=== PATIENT | female | born 1960 | race Caucasian/White ===

== ENCOUNTER 2020-05-14 09:56 | Outpatient (CLI) | payer BC, SELFPAY ==
--- NOTE | 2020-05-14 11:00 | NEURO_ITS ---
Patient Number: [id number] Impression: # Complains of numbness of hands. # Bilateral mild evolving Carpal Tunnel Syndrome. # Normal needle/EMG exam. # Clinical correlation recommended. Nerve Conduction Studies Anti Sensory Summary Table Stim Site NR Peak (ms) P-T Amp (?V) Site1 Site2 Delta-P (ms) Dist (cm) Diego (m/s) Left Median Anti Sensory (2-3nd Digit) Wrist 4.0 62.3 Wrist 2-3nd Digit 4.0 14.0 35 Wrist 4.0 67.5 Wrist 2-3nd Digit 4.0 14.0 35 Right Median Anti Sensory (2-3nd Digit) Wrist 3.6 51.6 Wrist 2-3nd Digit 3.6 14.0 39 Wrist 4.0 34.9 Wrist 2-3nd Digit 3.6 14.0 39 Left Radial Anti Sensory (Base 1st Digit) Wrist 2.1 15.9 Wrist Base 1st Digit 2.1 0.0 Right Radial Anti Sensory (Base 1st Digit) Wrist 1.9 36.2 Wrist Base 1st Digit 1.9 0.0 Left Ulnar Anti Sensory (5th Digit) Wrist 2.8 84.8 Wrist 5th Digit 2.8 14.0 50 Right Ulnar Anti Sensory (5th Digit) Wrist 2.6 17.8 Wrist 5th Digit 2.6 14.0 54 Motor Summary Table Stim Site NR Onset (ms) O-P Amp (mV) Site1 Site2 Delta-0 (ms) Dist (cm) Diego (m/s) Left Median Motor (Abd Poll Brev) Wrist 3.8 1.1 Elbow Wrist 5.0 29.0 58 Elbow 8.8 0.8 Right Median Motor (Abd Poll Brev) Wrist 3.7 4.6 Elbow Wrist 4.8 29.0 60 Elbow 8.5 4.0 Left Ulnar Motor (Abd Dig Minimi) Wrist 2.7 8.7 A Elbow Wrist 5.0 31.0 62 A Elbow 7.7 7.2 Right Ulnar Motor (Abd Dig Minimi) Wrist 2.4 6.7 A Elbow Wrist 5.3 31.0 58 A Elbow 7.7 5.9 F Wave Studies NR F-Lat (ms) L-R F-Lat (ms) Left Median (Mrkrs) (Abd Poll Brev) 29.10 0.90 Right Median (Mrkrs) (Abd Poll Brev) 28.20 0.90 Left Ulnar (Mrkrs) (Abd Dig Min) 27.21 0.14 Right Ulnar (Mrkrs) (Abd Dig Min) 27.35 0.14 EMG Side Muscle Nerve Root Ins Act Fibs Amp Dur Recrt Comment Right 1stDorInt Ulnar C8-T1 Nml Nml Nml Nml Nml Right Ext Indicis Radial (Post Int) C7-8 Nml Nml Nml Nml Nml Right Ext Digitorum Radial (Post Int) C7-8 Nml Nml Nml Nml Nml Right BrachioRad Radial C5-6 Nml Nml Nml Nml Nml Right PronatorTeres Median C6-7 Nml Nml Nml Nml Nml Right Abd Poll Brev Median C8-T1 Nml Nml Nml Nml Nml Left 1stDorInt Ulnar C8-T1 Nml Nml Nml Nml Nml Left Ext Indicis Radial (Post Int) C7-8 Nml Nml Nml Nml Nml Left Ext Digitorum Radial (Post Int) C7-8 Nml Nml Nml Nml Nml Left BrachioRad Radial C5-6 Nml Nml Nml Nml Nml Left PronatorTeres Median C6-7 Nml Nml Nml Nml Nml Left Abd Poll Brev Median C8-T1 Nml Nml Nml Nml Nml Right ABD Dig Min Ulnar C8-T1 Nml Nml Nml Nml Nml Left ABD Dig Min Ulnar C8-T1 Nml Nml Nml Nml Nml MTDD
== END 2020-05-14 09:57 | disposition home or self-care (01) ==
PROVIDERS: PCP Internal Medicine; Visit Provider Orthopaedic Surgery
DX: G56.03 Carpal tunnel syndrome, bilateral upper limbs (principal)
CPT/HCPCS: 95886; 95911

== ENCOUNTER 2020-06-24 01:50 | Outpatient (CLI) | payer BC, SELFPAY ==
[2020-06-24 19:02] LABS: SARS-CoV-2 RNA PCR Negative
== END 2020-06-24 01:51 | disposition home or self-care (01) ==
LOC: ANHCOVIDDT 01:51
PROVIDERS: PCP Internal Medicine; Visit Provider Orthopaedic Surgery
DX: Z01.812 Encounter for preprocedural laboratory examination (principal); Z20.828 Contact with and (suspected) exposure to other viral communicable diseases
CPT/HCPCS: 87635; C9803; U0003

== ENCOUNTER 2020-06-26 00:54 | Day surgery (SDC) | payer BC, SELFPAY ==
[2020-06-16 12:00] VITALS: BMI 39.4
[2020-06-26] VITALS (12 sets, daily range): BP systolic 111–146; BP diastolic 67–88; PULSE 59–70; RESP 12–20; TEMP 36–36.8; O2SAT 92–100
--- NOTE | ~2020-06-26 | XR_ITS ---
EXAMINATION: XR surgery orthopedic DATE: 06/26/2020 13:35 INDICATION: Left foot arthrodesis TECHNIQUE: A single frontal fluoroscopic image the left ankle was obtained during procedure performed by Dr. Fu. Radiologist was not present for the imaging or procedure. The amount of fluoroscopy time used during this procedure was minutes. COMPARISON: 06/18/2020 FINDINGS: There are a pair of likely compression screws projecting over the region of the posterior facet of th e subtalar joint likely for arthrodesis. There is a lateral sided staple and medial sided wire plate and screws and locations consistent with fixation for arthrodesis of the calcaneocuboid and talonavic ular joints respectively. There is improved alignment of the hindfoot on the provided projection whic h now appears near-anatomic. Mild tibiotalar osteoarthritis. No fracture. IMPRESSION: 1. Fluoroscopy utilized during instrumented hindfoot arthrodesis detailed above. See procedure note f or further detail. Reviewed, dictated and finalized at location A. IMPRESSION: 1. Fluoroscopy utilized during instrumented hindfoot arthrodesis detailed above . See procedure note for further detail.
--- NOTE | 2020-06-26 07:00 | WPDHPUPDATE1 ---
History and Physical Update Update Date/Time: 06/26/20 07:00 History and Physical has been reviewed, including an updated exam of the patient. There are NO changes in the patient's condition. Covid test negative. Risks, benefits, and alternatives have been discussed and questions answered. Patient agrees to proceed with procedure.
[2020-06-26] MEDS: ACETAMINOPHEN 500 MG TABLET 1000 MG PO (08:36)
[2020-06-26] MEDS: KETOROLAC 15 MG/ML VIAL (*BKC) IV PUSH (08:37)
[2020-06-26] MEDS: LACTATED RINGERS 1,000 ML 30 ML IV CONT ×2 (08:45→14:09)
--- NOTE | 2020-06-26 09:37 | P.PNAN_ITS ---
Anes - Initial Pre Proc Eval Procedure: Operation Date: 06/26/20 09:30 Proposed Procedures p Left Foot Triple Arthrodesis, Flexor Digitorum Communis Tendon Transfer, Achilles Lengthening, Synovial Biopsy - Mike Fu MD Date/Time: 06/26/20 09:37 Surgeon: Mike Fu MD Pre Op Diagnosis: left ankle arthritis, left flat foot, left RA Patient Data Age: 60 Gender: F Height: 1.71 m Weight: 112.4 kg Last Vital Signs Temp 36.4 C 06/26/20 08:32 Pulse 70 06/26/20 08:32 Resp 18 06/26/20 08:32 BP 146/88 H 06/26/20 08:32 Pulse Ox 100 06/26/20 08:32 Allergies Allergy/AdvReac Type Severity Reaction Status Date / Time No Known Allergies Allergy Verified 06/26/20 08:24 Home Medications Medication Instructions Recorded Confirmed Type celecoxib 200 mg capsule 200 mg PO DAILY 08/07/19 06/26/20 History cholecalciferol (vitamin D3) 25 1,000 unit PO 3XW 08/07/19 06/26/20 History mcg (1,000 unit) capsule cranberry 500 mg capsule 500 mg PO 2XW 08/07/19 06/26/20 History folic acid 1 mg tablet 1 mg PO DAILY 08/07/19 06/26/20 History methotrexate sodium 2.5 mg tablet 2.5 mg PO WEEKLY 08/07/19 06/26/20 History multivitamin 1 tablet PO .4X WEEKLY 08/07/19 06/26/20 History sulfasalazine 500 mg tablet 1,500 gm PO BID 08/07/19 06/26/20 History golimumab 12.5 mg/mL intravenous 2 mg/kg IVPB .bimonthly ml 03/04/20 06/26/20 History solution losartan-hydrochlorothiazide 0.5 tablet PO DAILY 06/16/20 06/26/20 History Patient hx anesthesia problems: none Family hx anesthesia problems: none PMFSH Past Medical History Medical History (Updated 06/18/20 @ 12:22 by Mike Fu MD) Acquired leg length discrepancy Arthritis of foot Chronic headaches HTN (hypertension) Left ankle effusion Rheumatoid arthritis Vision loss Surgical History Surgical History H/O arthroscopic knee surgery H/O joint replacement Family History Family History Other Arthritis Cancer Diabetes mellitus Hypertension Social History Social History Alcohol intake: never Substance use: unknown 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 Questions were solicited and answers provided to the satisfaction of the patient/family/POA.
[2020-06-26] MEDS: ceFAZolin 2 GM/D5W 50 ML 2 GM/50 ML BAG IVPB (09:47)
[2020-06-26] MEDS: BUPIVACAINE HCL 0.5% PF 30 ML VIAL INFILTRATE (10:33)
--- NOTE | 2020-06-26 14:25 | PM.PROC ---
Procedure Note - Detailed Date of procedure: 06/26/20 Pre-op diagnosis: left ankle arthritis, left flat foot, left RA Post-op diagnosis: same Procedure performed: Left foot triple arthrodesis, posterior tibial tendon reconstruction with FDL tendon transfer to the navicula, ankle joint biopsy Description of procedure: Indications: Patient is a 52-year-old woman with inflammatory arthritis left foot and ankle swelling, pain and deformity with flatfoot. She also has posterior tibial tendon dysfunction. She has failed conservative treatment with custom bracing and inserts. She presents now for operative treatment. She is currently under care of a branch employment coordinator and continues to have pain and swelling. What was done: Patient identified in the preoperative holding. Informed consent given. Operative extremity marked. Patient received intravenous antibiotics. Patient brought to the operating room where underwent general anesthetic by anesthesia team. Positioned supine on operating room table. Time-out performed confirming the patient, site of the surgery and the plan. A bump placed under the left hip. Left lower extremity then prepped draped usual sterile surgical fashion using a ChloraPrep skin solution. Foot and ankle exsanguinated and a thigh tourniquet inflated to 250 mmHg. Oblique incision made from the tip of the fibula to the base of the 4th metatarsal with a 15 blade knife. Hemostasis controlled electrocautery. The soft tissue was elevated at the proximal extent and a anterolateral capsulotomy was performed with a 15 blade knife at the ankle joint. Copious amount of fluid was able to be retrieved and passed off as specimen. A 1.5 x 1.5 centimeter sq of synovium was also sharply excised and passed off as specimen. Wound was thoroughly irrigated and the capsule was closed with 0 Vicryl interrupted suture. Capsulotomy was performed over the sinus tarsi and the calcaneocuboid joint with a 15 blade knife. Joints were then prepared using osteotomes, curettes and rongeur to remove the cartilage and subchondral bone surface as well as feather the arthrodesis site. The subtalar joint was then reduced and pinned and checked with image intensification. Fixation was achieved with 7.0 mm cannulated screws placed percutaneously from the heel. Good reduction and compression were noted. Platelet rich plasma which had been removed from the patient's venous blood and prepared on the back table with central fusion was then mixed with the demineralized bone matrix and packed into the subtalar joint prior to fixation. Calcaneocuboid joint was approached in a similar fashion. The graft with demineralized bone matrix was placed into the arthrodesis site. This was reduced and provisionally pinned and checked with image intensification. Fixation achieved with a Nitinol staple. Wound thoroughly irrigated antibiotic solution fascia repaired with 0 Vicryl interrupted suture. Subcutaneous tissue repaired with 2 Vicryl suture subcutaneous tissue repaired with 3 0 Monocryl interrupted suture and skin repaired with tello. Stab incisions closed with 3 Monocryl and tello. Oblique incision made from the medial malleolus to the navicular and then with a 15 blade knife. Hemostasis controlled electrocautery. Fascia incised in line with skin incision. Incision over the posterior tibial tendon sheath then made. The posterior tibial tendon was noted to be completely ruptured and atrophied. Deep to this flexor digitorum was identified and was released distally. Drill hole placed in the medial navicular tuberosity from dorsal plantar. Tendon was then transferred through the drill hole from plantar to dorsal. Fixed with an Arthrex bioabsorbable bio tenodesis screw. Wound thoroughly irrigated antibiotic solution and the tendon sheath was repaired with 0 Vicryl interrupted suture. Talonavicular joint capsule was then incised in line with skin incision and elevated dorsally and plantarw
--- NOTE | 2020-06-26 14:54 | WPDANESPNB ---
Anes - Peripheral Nerve Block Date/Time: 06/26/20 14:54 I have discussed with the patient/family/POA the placement of a peripheral nerve block for post-operative pain management, including associated risks, benefits, complications, and side effects. Alternative methods of post-operative analgesia were detailed. Questions were solicited and answers provided to the satisfaction of the patient/family/POA. Time-Out: A pre-procedural Time-Out was completed immediately before starting the procedure and confirmed: Patient Identification, Site, Procedure, Patient Position and the Availability of Requisite Equipment. Clinical Indications: Acute post-operative pain management requested by the operative surgeon. Nerve Block Insertion Note Anes-nerve block: posterior fossa sciatic (20cc) left and adductor canal (10cc) left Patient position: supine Skin prep: chlorhexidine Needle: 22 gauge, stimulating, insulated echogenic needle. Needle length: 80 mm Technique: ultrasound (in plane) Injectate: bupivacaine 0.5% with epi 5 mcg/ml (20cc) Observations: tolerated well Complications: none Procedure start time:: 1445 Procedure end time:: 1450
--- NOTE | 2020-06-26 15:20 | ADMGEN ---
This patient, Rc Juarez, was admitted to Medical Room 247-. Patient/family oriented to hospital policies and general routines including ID bracelet, bed and alarms, visiting hours, pain management, procedures, bathroom and other care routines, personal items, smoking policy, room service/diet, and visiting hours. Information on how to activate the Rapid Response Team has been discussed. Patient/Family are encouraged to report perceived risks to care and to ask questions if they do not understand what they are told or what they should do.
[2020-06-26] MEDS: KCL 20 MEQ/D5/0.45% SOD CHL 1,000 ML 80 ML IV CONT (15:39)
[2020-06-26] MEDS: IBUPROFEN IV 400 MG in SODIUM CHLORIDE 0.9% IV 100 ML 200 MG IVPB ×2 (16:46→21:15)
[2020-06-26] MEDS: DOCUSATE SODIUM 100 MG CAPSULE PO (16:55)
[2020-06-26] MEDS: ONDANSETRON INJ 4 MG/2 ML VIAL IV PUSH (18:47)
[2020-06-26] MEDS: FAMOTIDINE 20 MG TABLET PO (21:15)
[2020-06-27 00:20] VITALS: BP 109/61; PULSE 59; RESP 18; TEMP 37.1; O2SAT 97
[2020-06-27 04:49] VITALS: BP 107/62; PULSE 71; RESP 18; TEMP 37.3; O2SAT 100
[2020-06-27] MEDS: IBUPROFEN IV 400 MG in SODIUM CHLORIDE 0.9% IV 100 ML 200 MG IVPB ×2 (05:18→09:04)
[2020-06-27 05:41] LABS: Basophils Percent Auto 0.1 % (0.2-1.2); Hematocrit 31.3 % (37.0-47.0); Hemoglobin 10.1 g/dL (12.0-15.0); Immature Granulocyte Absolute 0.03 K/mm3 (0.00-0.031); Immature Granulocyte Percent A 0.4 % (0-0.5); Lymphocytes Absolute Auto 1.22 K/mm3 (0.9-3.2); Lymphocytes Percent Auto 15.5 % (18.3-44.2); Mean Corpuscular HGB Conc 32.3 g/dl (32-36); Mean Corpuscular Hemoglobin 31.8 pg (26-34); Mean Corpuscular Volume 98.4 fl (80-100); Mean Platelet Volume 9.3 fl (7.4-10.4); Monocytes Percent Auto 12.8 % (2.6-8.5); Neutrophils Absolute Auto 5.6 K/mm3 (1.3-6.7); Neutrophils Percent Auto 71.2 % (45.5-73.1); Platelet Count Result 218 k/mm3 (150-375); Red Blood Count 3.18 M/mm3 (4.2-5.4); Red Cell Distribution Width 13.5 % (11.5-14.5); White Blood Count 7.9 K/mm3 (4.5-10.0)
[2020-06-27 05:54] LABS: Anion Gap 3 mmol/L (8-16); Blood Urea Nitrogen 12 mg/dL (7-17); Calcium 8.5 mg/dL (8.4-10.2); Carbon Dioxide 30 mmol/L (22-30); Chloride 105 mmol/L (98-107); Estimated CRCL calculation 98 ml/min; Estimated Glomerular Filt Rate > 60; Glucose 119 mg/dL (65-105); Potassium 3.9 mmol/L (3.4-5.0); Sodium 138 mmol/L (137-145)
--- NOTE | 2020-06-27 07:27 | P.PNAN_ITS ---
Anes - Prog Note Post-Op Date/Time: 06/27/20 07:27 Cardiovascular status: normal Respiratory status: normal Airway patency: baseline Mental status: baseline Post-Op hydration status: normal Vital Signs: Last Vital Signs Temp 37.3 C 06/27/20 04:49 Pulse 71 06/27/20 04:49 Resp 18 06/27/20 04:49 BP 107/62 06/27/20 04:49 Pulse Ox 100 06/27/20 04:49 Pain Score (VAS): 0/10 I/O: Intake & Output 06/26/20 06/26/20 06/27/20 15:59 23:59 07:59 Intake Total 672 029 7931 Output Total 40 200 1500 Balance 310 50 -46 Laboratory Tests 06/27/20 05:07 06/27/20 05:07 06/27/20 06/27/20 05:07 05:07 WBC 7.9 RBC 3.18 L Hgb 10.1 L Hct 31.3 L MCV 98.4 MCH 31.8 MCHC 32.3 RDW 13.5 Plt Count 218 MPV 9.3 Immature Gran % (Auto) 0.4 Neut % (Auto) 71.2 Lymph % (Auto) 15.5 L [place] % (Auto) 12.8 H Eos % (Auto) 0.0 Baso % (Auto) 0.1 L Lymph # (Auto) 1.22 [place] # (Auto) 1.0 H Eos # (Auto) 0.0 Baso # (Auto) 0.0 Abs Immat Gran (auto) 0.03 Absolute Neuts (auto) 5.6 Absolute Nucleated RBC 0.0 Nucleated RBC % 0.0 Sodium 138 Potassium 3.9 Chloride 105 Carbon Dioxide 30 Anion Gap 3 L BUN 12 Creatinine 0.70 Estim Creat Clear Calc 98 Estimated GFR > 60 Glucose 119 H Calcium 8.5 Post-procedural complaints: none Patient Feedback: Patient satisfied with anesthetic care.
[2020-06-27] MEDS: FOLIC ACID 1 MG TABLET PO (08:09)
[2020-06-27] MEDS: hydroCHLOROthiazide 6.25 MG TABLET PO (08:09)
[2020-06-27] MEDS: LOSARTAN POTASSIUM 25 MG TABLET PO (08:09)
[2020-06-27] MEDS: FAMOTIDINE 20 MG TABLET PO (08:09)
[2020-06-27] MEDS: DOCUSATE SODIUM 100 MG CAPSULE PO (08:09)
--- NOTE | 2020-06-27 08:44 | PM.PNORT ---
Progress Note: A&P Assessment and Plan (1) Rheumatoid arthritis: Qualifiers: Rheumatoid arthritis location: ankle Rheumatoid factor presence: with rheumatoid factor Laterality: left Qualified Code(s): M05.772 - Rheumatoid arthritis with rheumatoid factor of left ankle and foot without organ or systems involvement Code(s): M06.9 - Rheumatoid arthritis, unspecified Status: Acute Assessment and Plan: POD #1 LT triple arthrodesis. Doing well, up in chair. Block starting to wear off. PT/OT- nwb lt leg Pain control. Home today Subjective Subjective Date/Time Seen: 06/27/20 08:44 Up in chair, eating, comfortable. Exam Const: General: healthy appearing; No in distress or confusion Orientation/consciousness: patient oriented x3 and No confusion HENMT: Head: normal to inspection, normocephalic and atraumatic Eyes: Conjunctivae: conjunctivae normal Sclera: sclerae normal Resp: Effort & Inspection: normal respiratory effort and no audible wheezes Neuro: General: patient oriented x3 and No confusion Extrem: Right lower extremity: normal to inspection, normal capillary refill and lower leg (negative homans) Left lower extremity: ankle Details: other (cast in place, well fitted) and foot Details: vascular exam Details: normal capillary refill and other (able to flex toes) Psych: Affect: normal affect Objective Data Vital Signs Vital Signs: Vital Signs - 24 hr 06/26/20 14:09 06/26/20 14:20 06/26/20 14:35 Temperature 98.2 F Pulse Rate 63 59 L 64 Respiratory Rate 12 12 15 Blood Pressure 123/76 111/76 118/75 Pulse Oximetry 96 97 100 06/26/20 14:45 06/26/20 15:00 06/26/20 15:04 Temperature 96.8 F L Pulse Rate 61 61 59 L Respiratory Rate 12 12 17 Blood Pressure 117/73 116/75 137/69 Pulse Oximetry 96 97 100 06/26/20 15:19 06/26/20 15:20 06/26/20 16:49 Temperature 97 F L 97.1 F L Pulse Rate 60 63 Respiratory Rate 15 15 Blood Pressure 143/74 H 131/72 Pulse Oximetry 100 100 100 06/26/20 20:00 06/26/20 21:07 06/27/20 00:20 Temperature 97.5 F L 98.8 F Pulse Rate 67 59 L Respiratory Rate 20 18 Blood Pressure 126/67 109/61 Pulse Oximetry 92 92 97 06/27/20 04:49 Temperature 99.2 F Pulse Rate 71 Respiratory Rate 18 Blood Pressure 107/62 Pulse Oximetry 100 Intake/Output Intake/Output: Intake & Output 06/24/20 06/25/20 06/26/20 06/27/20 23:59 23:59 23:59 23:59 Intake Total 600 1504 Output Total 240 1500 Balance 360 4 Meds/Results Medications: Active Medications Generic Name Dose Route Start Last Admin Trade Name Freq PRN Reason Stop Dose Admin Acetaminophen 650 mg 06/26/20 15:04 Acetaminophen 325 Mg Tablet PO Q6H PRN Pain Rated 1-3 Diazepam 5 mg 06/26/20 15:04 Diazepam (*Crx) 5 Mg Tablet PO Q8H PRN Muscle Spasm Docusate Sodium 100 mg 06/26/20 17:00 06/27/20 08:09 Docusate Sodium 100 Mg Capsule PO 100 mg BID CHRISTINA Administration Famotidine 20 mg 06/26/20 21:00 06/27/20 08:09 Famotidine 20 Mg Tablet PO 20 mg Q12HR CHRISTINA Administration Folic Acid 1 mg 06/27/20 09:00 06/27/20 08:09 Folic Acid 1 Mg Tablet PO 1 mg DAILY CHRISTINA Administration Hydrochlorothiazide 6.25 mg 06/27/20 09:00 06/27/20 08:09 Hydrochlorothiazide 6.25 Mg Tablet PO 6.25 mg QAM CHRISTINA Administration Ibuprofen 400 mg/ Sodium 104 mls @ 200 mls/hr 06/26/20 16:00 06/27/20 07:16 Chloride IVPB Infused Q6H CHRISTINA Infusion Cefazolin Sodium 1 gm in 50 mls @ 100 mls/hr 06/26/20 15:04 06/27/20 07:00 Ancef 1 Gm/D5w 50 Ml Pm IVPB 06/27/20 14:05 Infused Q8H CHRISTINA Infusion Losartan Potassium 25 mg 06/27/20 09:00 06/27/20 08:09 Losartan Potassium 25 Mg Tablet PO 25 mg QAM CHRISTINA Administration Magnesium Hydroxide 30 ml 06/26/20 15:04 Magnesium Hydroxide Susp 30 Ml Udc PO BID PRN Constipation Morphine Sulfate 3 mg 06/26/20 15:04 Morphine Sulfate (*Crx) 4 Mg/Ml Inj
[2020-06-27 10:00] VITALS: BP 105/53; PULSE 85; RESP 17; TEMP 36.8; O2SAT 99
--- NOTE | 2020-06-27 10:47 | PCOTNOTE ---
On 06/27/20, the student, Ana Ortiz, provided care and completed [facility] documentation on this patient. I have reviewed the student's documentation and agree with the findings.
[2020-06-27 14:00] VITALS: BP 111/66; PULSE 83; RESP 19; TEMP 37.1; O2SAT 97
--- NOTE | 2020-06-30 16:24 | PM.DS ---
DS: Admitting Diagnosis Admitting Diagnosis Admitting Diagnosis: rheumatoid arthritis DS: Discharge Diagnosis Discharge Diagnosis (1) Rheumatoid arthritis: Qualifiers: Rheumatoid arthritis location: ankle Rheumatoid factor presence: with rheumatoid factor Laterality: left Qualified Code(s): M05.772 - Rheumatoid arthritis with rheumatoid factor of left ankle and foot without organ or systems involvement Code(s): M06.9 - Rheumatoid arthritis, unspecified Status: Acute Assessment and Plan: S/P foot surgery. Cast in place, nwb. F/U ortho office 4 days (2) Arthritis of foot: Code(s): M19.079 - Primary osteoarthritis, unspecified ankle and foot Status: Acute (3) Posterior tibial tendon dysfunction (PTTD) of left lower extremity: Code(s): M76.822 - Posterior tibial tendinitis, left leg Status: Acute (4) Pes planus of left foot: Code(s): M21.42 - Flat foot [pes planus] (acquired), left foot Status: Acute DS: Summary Hospital Course Reason for hospitalization: Left foot pain, arthritis, deformity. Hospital Course: Taken to OR 06/26 for left foot. Admitted after for edema/ pain control. PT/OT pod #1, Pain controlled, cast well fit. Cleared for d/c Status at Discharge Cognitive/behavioral status at discharge: Alert and oriented x 3 Functional status at discharge: uses cane/walker Overall status at discharge: patient is not back to baseline Time Spent with Patient Time attestation: Total time spent providing and/or coordinating discharge services: Exam Const: General: healthy appearing; No in distress or confusion Orientation/consciousness: patient oriented x3 and No confusion HENMT: Head: normal to inspection, normocephalic and atraumatic Eyes: Conjunctivae: conjunctivae normal Sclera: sclerae normal Resp: Effort & Inspection: normal respiratory effort and no audible wheezes Neuro: General: patient oriented x3 and No confusion Extrem: Right lower extremity: normal to inspection, normal capillary refill and lower leg (negative homans) Left lower extremity: ankle Details: other (cast in place, well fitted) and foot Details: vascular exam Details: normal capillary refill and other (able to flex toes) Psych: Affect: normal affect DS: Data Data Completed and Pending Completed studies during hospitalization: Pending at discharge 06/26/20 10:24 Surgical [PTH] Routine Discharge Plan Discharge Patient Disposition: Home, Self-Care Discharge Instructions: FELECIA FU M.D. [facility] [address] [place] [address] POST OPERATIVE DISCHARGE INSTRUCTIONS FOOT/ANKLE SURGERY Elevate the involved extremity on pillows. For the first 48 hours, make sure that the foot is above the level of your heart. Carefully observe the exposed toes for evidence of swelling or discoloration. If the dressing is uncomfortable or tight, call the Dr?s office. Keep the dressing clean and dry. Remove dressing only as directed by doctor. If the pain medication does not provide adequate relief, please call Dr?s office. Take other medication as prescribed. Please call Dr?s office to confirm follow-up appointment for 1 week. If you have any questions, please call the Dr?s office. Diet as tolerated. Activity:___X____Restrictions as follows: no weight operative leg; crutches or walker for ambulation Do not drive for 24 hours, unless otherwise instructed. Additional instructions: Patient Instructions: Antibiotic Form, Oxycodone, Rapid Release (By mouth), Cast Care (GEN), How to Choose and Use a Walker (GEN) Stand Alone Forms: General Discharge Information Follow-up/Referrals: Felecia Fu
== END 2020-06-27 17:00 | disposition home or self-care (01) ==
LOC: ANHSURGERY 07:32 → ANH2MED 19:10
PROVIDERS: PCP Internal Medicine; Visit Provider Orthopaedic Surgery
PROC: (CPT 28715; principal; 2020-06-26 09:30)
DX: M19.072 Primary osteoarthritis, left ankle and foot (principal); M21.42 Flat foot [pes planus] (acquired), left foot; M05.772 Rheumatoid arthritis with rheumatoid factor of left ankle and foot without organ or systems involvement; M76.822 Posterior tibial tendinitis, left leg; G89.18 Other acute postprocedural pain; I10 Essential (primary) hypertension; E66.9 Obesity, unspecified; Z68.38 Body mass index [BMI] 38.0-38.9, adult
CPT/HCPCS: 28715; 27691; 28200; 27620; 64445; 64447; 36415; 80048; 85025; 88304; 97161; 97165; A9270; J0690; J1100; J1170; J1741; J1885; J2250; J2405; J2704; J3010; J3480; J7120

== ENCOUNTER 2020-08-20 11:38 | Outpatient (NON) | payer BC, SELFPAY ==
[2020-08-20 12:47] LABS: Appearance Synovial Fluid Turbid (Clear); Color Synovial Fluid Red (Colorless); Lymphocytes Synovial Fluid 50 %; Neutrophils Synovial Fluid 29 % (0-25); Source Synovial Fluid Synovial fluid
[2020-08-20 12:48] LABS: Monocytes Synovial Fluid 9 %
[2020-08-20 12:49] LABS: Other Cells Synovial Fluid 12 %
[2020-08-20 12:53] LABS: Crystals Synovial Fluid None Seen (None Seen)
== END 2020-08-20 11:39 ==
LOC: ANHLAB 11:40
PROVIDERS: PCP Internal Medicine; Visit Provider Orthopaedic Surgery
DX: M25.472 Effusion, left ankle (principal)
CPT/HCPCS: 36415; 82945; 84157; 86430; 87070; 87075; 87076; 87205; 88108; 89051; 89060

== ENCOUNTER → 2022-06-09 16:33 | Outpatient (CLI) | payer OTHER, SELFPAY ==
--- NOTE | ~2022-06-09 | XR_ITS ---
EXAMINATION: XR cervical spine 4-5V DATE: 06/09/2022 16:59 INDICATION: Psoriatic arthritis, therapeutic drug monitoring. Neck pain. TECHNIQUE: 4 views of cervical spine were obtained. COMPARISON: None. FINDINGS: There is 7 degrees dextrocurvature of cervicothoracic spine. Vertebral body heights are nor mal. There is moderately decreased disc height at C5-C6. At C5-C6, there is severe bilateral uncovert ebral joint osteoarthritis. There is mild left facet joint osteoarthritis at C4-C5. There is mild rick tral canal stenosis at C5-C6. No prevertebral soft tissue swelling. IMPRESSION: 1. Moderate cervical spondylosis, worst at C5-C6. Reviewed, dictated and finalized at location A.
--- NOTE | ~2022-06-09 | XR_ITS ---
EXAMINATION: XR thoracic spine 2V DATE: 06/09/2022 16:59 INDICATION: Psoriatic arthritis. Therapeutic drug monitoring. Neck pain. TECHNIQUE: 2 views of thoracic spine were obtained. COMPARISON: None. FINDINGS: There is 11 degrees levoscoliosis of upper thoracic spine. There is 8 degrees dextrocurvatu re of lower thoracic spine. Vertebral body heights are normal. There is mildly decreased disc height at multiple levels. There are endplate osteophytes at most levels. IMPRESSION: 1. Mild thoracic spondylosis. 2. Scoliosis. Reviewed, dictated and finalized at location A.
== END ==
PROVIDERS: PCP Internal Medicine; Visit Provider Internal Medicine Rheumatology
DX: M25.572 Pain in left ankle and joints of left foot (principal); G89.29 Other chronic pain; L40.50 Arthropathic psoriasis, unspecified; Z79.899 Other long term (current) drug therapy; M47.894 Other spondylosis, thoracic region; M41.9 Scoliosis, unspecified; M47.892 Other spondylosis, cervical region
CPT/HCPCS: 72050; 72070

== ENCOUNTER 2022-08-06 16:49 | Emergency (ER) | payer OTHER, SELFPAY ==
[2022-08-06 17:02] VITALS: BP 156/71; PULSE 78; RESP 18; TEMP 36.1; O2SAT 99
--- NOTE | 2022-08-06 17:43 | ED.URI ---
HPI - URI/Sore Throat General Chief Complaint: Upper Respiratory Infection Stated Complaint: Cough Time Seen by Provider: 08/06/22 17:34 Source: patient Mode of arrival: ambulatory Limitations: no limitations History of Present Illness HPI Narrative: patient presents today with a one-week history of cough. States she looked in the back of her throat today and saw white patches there as well and is seeking strep testing today. Denies congestion, sore throat, fever. She is currently pain-free. She has been using allergy eye drops and Flonase. Related Data Home Medications Medication Instructions Recorded Confirmed celecoxib 200 mg capsule (Celebrex) 200 mg PO DAILY 08/07/19 08/06/22 cholecalciferol (vitamin D3) 25 1,000 unit PO 3XW 08/07/19 08/06/22 mcg (1,000 unit) capsule (Vitamin D3) cranberry 500 mg capsule 500 mg PO 2XW 08/07/19 08/06/22 folic acid 1 mg tablet 1 mg PO DAILY 08/07/19 08/06/22 methotrexate sodium 2.5 mg tablet 2.5 mg PO WEEKLY 08/07/19 08/06/22 multivitamin 1 tablet PO .4X WEEKLY 08/07/19 08/06/22 sulfasalazine 500 mg tablet 1,500 gm PO BID 08/07/19 08/06/22 golimumab 12.5 mg/mL intravenous 2 mg/kg IV .bimonthly 03/04/20 07/01/21 solution (Simponi ARIA) losartan 50 mg-hydrochlorothiazide 0.5 tablet PO DAILY 06/16/20 08/06/22 12.5 mg tablet paroxetine HCl 30 mg tablet 30 mg PO DAILY 08/06/22 08/06/22 rivaroxaban 20 mg tablet (Xarelto) 20 mg PO DAILY 08/06/22 08/06/22 Allergies Allergy/AdvReac Type Severity Reaction Status Date / Time No Known Allergies Allergy Verified 08/06/22 17:14 Review of Systems Review of Systems: CONSTITUTIONAL: Denies body aches, fever, chills, or sweats. EYES: Denies visual changes, redness, or discharge. ENT: Denies rhinorrhea, congestion, sore throat, or otalgia. CARDIOVASCULAR: Denies chest pain, palpitations, or edema. RESPIRATORY: Denies dyspnea.+ Cough GASTROINTESTINAL: Denies abdominal pain, nausea, vomiting, or diarrhea. GENITOURINARY: Denies dysuria or hematuria. SKIN: Denies rash, itching, or wounds. MUSCULOSKELETAL: Denies back pain, joint pain, or myalgia. NEUROLOGIC: Denies headache, numbness, tingling, or weakness. PSYCH: Denies depression or anxiety. 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 Please see nursing chart for further information. There is no relevant family history pertinent to the presenting complaint Exam Narrative: GENERAL: Well-appearing, well-nourished, and in no acute distress. HEAD: Normocephalic, atraumatic. EYES: EOMI. No redness or drainage. Conjunctivae normal. ENT: Mucous membranes pink and moist. Nares clear. No rhinorrhea. TMs normal bilaterally. Throat mildly erythematous. Patient has copious white postnasal drainage. Uvula midline. NECK: Normal AROM. Supple. No lymphadenopathy. CHEST: No respiratory distress. Clear to auscultation.
== END 2022-08-06 17:55 | disposition home or self-care (01) ==
PROVIDERS: Emergency Provider Nurse Practitioner; PCP Internal Medicine
DX: J02.9 Acute pharyngitis, unspecified (principal); I10 Essential (primary) hypertension
CPT/HCPCS: 87081; 87880; 99213; G0463

== ENCOUNTER → 2023-03-31 13:28 | Outpatient (CLI) | payer OTHER, SELFPAY ==
--- NOTE | ~2023-03-31 | XR_ITS ---
XR sacroiliac joints min 3V 03/31/2023 13:56 Indication: Osteoarthritis. Procedure: 3 views sacroiliac joints Comparison: No prior studies for comparison. 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 Sacr al foramen are symmetric. Mild osteoarthritis of the hips. Lower lumbar spine spondylosis partially v isualized. Impression: 1: Mild symmetric degenerative changes of the sacroiliac joints. Reviewed, dictated and finalized at location A. Impression: 1: Mild symmetric degenerative changes of the sacroiliac joints.
== END ==
PROVIDERS: PCP Family Medicine; Visit Provider Internal Medicine Rheumatology
DX: Z51.81 Encounter for therapeutic drug level monitoring (principal); M19.90 Unspecified osteoarthritis, unspecified site; Z79.899 Other long term (current) drug therapy
CPT/HCPCS: 72202